=== PATIENT | male | born 1980 ===

== ENCOUNTER 2024-12-14 19:40 | Emergency (ER) | payer SELFPAY ==
[~2024-12-14] VITALS: Ht 162.6 cm; Wt 78.0 kg
[2024-12-14 19:56] VITALS: BP 142/65; PULSE 78; RESP 15; O2SAT 97
== END 2024-12-15 01:00 | disposition left against medical advice (07) ==
LOC: ER 19:42
DX: S61.012A Laceration without foreign body of left thumb without damage to nail, initial encounter (principal); Z53.21 Procedure and treatment not carried out due to patient leaving prior to being seen by health care provider; W26.8XXA Contact with other sharp object(s), not elsewhere classified, initial encounter; Y93.89 Activity, other specified; Y92.89 Other specified places as the place of occurrence of the external cause; Y99.8 Other external cause status
CPT/HCPCS: 73140